=== PATIENT | male | born 1975 | race African-American/Black ===

== ENCOUNTER 2016-12-12 05:52 | Emergency (ER) | payer SELFPAY ==
[2016-12-12 06:11] VITALS: BMI 36.9
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
[2016-12-12] MEDS ORDERED: ACETAMINOPHEN 1000 MG/100 ML VIAL (NON FORMULARY) IVPB ONE (06:45)
[2016-12-12] MEDS ORDERED: SODIUM CHLORIDE 0.9% 500 ML INFUS.BAG IV ONE (06:45)
[2016-12-12 07:31] LABS: BASOPHIL 0.7 % (0-2.0); MCH 35.4 pg (25.7-33.7); MEAN CELL VOLUME 101.1 fl (80-96); MEAN PLT VOLUME 10.1 fl (7.5-11.1); NEUTROPHILS 50.6 % (42.8-82.8); PLATELET COUNT 210 K/MM3 (134-434); RDW 13.8 % (11.9-15.9); WHITE BLOOD COUNT 10.6 K/mm3 (4.0-10.0)
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
[2016-12-12 07:56] LABS: ALBUMIN 3.7 g/dl (3.4-5.0); AMYLASE 82 U/L (25-115); ANION GAP 9 (8-16); BILIRUBIN,TOTAL 0.4 mg/dL (0.2-1.0); CALCIUM 8.8 mg/dL (8.5-10.1); CO2 25 mmol/L (21-32); CREATININE 1.2 mg/dL (0.7-1.3); GLUCOSE,RANDOM 103 mg/dL (74-106); TOT PROT 7.4 g/dl (6.4-8.2)
[2016-12-12 07:57] LABS: ALK PHOS 114 U/L (45-117); SGPT/ALT 65 U/L (12-78)
[2016-12-12 08:08] LABS: SGOT/AST 34 U/L (15-37)
[2016-12-12 10:54] VITALS: BP 136/78; PULSE 68; TEMP 97.8
== END 2016-12-12 11:12 ==
LOC: JER 05:52
CPT/HCPCS: 36415; 74176-TC; 80053; 82150; 83690; 85025; 99282-25; Q9967

== ENCOUNTER 2017-03-07 17:31 | Emergency (ER) | payer OTHER ==
[2017-03-07 17:36] VITALS: BP 130/72; PULSE 80; TEMP 98.2; BMI 41.3
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
[2017-03-07] MEDS ORDERED: SODIUM CHLORIDE 1,000 ML IV STA (18:13)
[2017-03-07] MEDS ORDERED: ONDANSETRON 4 MG/2 ML VIAL IVPUSH STA (18:13)
[2017-03-07] MEDS ORDERED: ONDANSETRON 4 MG/2 ML VIAL ONE (18:17)
[2017-03-07 18:40] LABS: BASOPHIL 0.5 % (0-2.0); EOSINOPHIL 2.4 % (0-4.5); MCHC 34.2 g/dl (32.0-35.9); MEAN CELL VOLUME 99.4 fl (80-96); MEAN PLT VOLUME 10.2 fl (7.5-11.1); NEUTROPHILS 61.8 % (42.8-82.8); PLATELET COUNT 152 K/MM3 (134-434); RDW 13.7 % (11.9-15.9); WHITE BLOOD COUNT 11.3 K/mm3 (4.0-10.0)
[2017-03-07 18:42] LABS: URINE APPEARANCE CLEAR; URINE BILIRUBIN NEGATIVE (NEGATIVE); URINE BLOOD NEGATIVE (NEGATIVE); URINE COLOR YELLOW; URINE GLUCOSE (UA) NEGATIVE (NEGATIVE); URINE KETONE NEGATIVE (NEGATIVE); URINE NITRITE NEGATIVE (NEGATIVE); URINE PROTEIN NEGATIVE (NEGATIVE); URINE UROBILINOGEN NEGATIVE mg/dL (0.2-1.0)
[2017-03-07 19:06] LABS: ALBUMIN 3.9 g/dl (3.4-5.0); ALK PHOS 70 U/L (45-117); ANION GAP 7 (8-16); BILIRUBIN,TOTAL 0.4 mg/dL (0.2-1.0); CALCIUM 8.4 mg/dL (8.5-10.1); CO2 28 mmol/L (21-32); CREATININE 1.2 mg/dL (0.7-1.3); GLUCOSE,RANDOM 113 mg/dL (74-106); SGOT/AST 22 U/L (15-37); SGPT/ALT 50 U/L (12-78); TOT PROT 7.3 g/dl (6.4-8.2)
[2017-03-07] MEDS ORDERED: PANTOPRAZOLE SODIUM 40 MG VIAL IVPUSH ONE (20:01)
[2017-03-07] MEDS ORDERED: PANTOPRAZOLE SODIUM 40 MG VIAL ONE (20:10)
[2017-03-07 22:14] LABS: URINE LEUK ESTERASE Negative (NEGATIVE)
== END 2017-03-07 22:39 | disposition home or self-care (01) ==
LOC: JER 17:31
PROC: 3E033GC Introduction of Other Therapeutic Substance into Peripheral Vein, Percutaneous Approach (ICD-10-PCS; principal; 2017-03-07)
DX: K21.9 Gastro-esophageal reflux disease without esophagitis (principal); K59.00 Constipation, unspecified; I10 Essential (primary) hypertension; Z87.828 Personal history of other (healed) physical injury and trauma
CPT/HCPCS: 36415; 74177-TC; 76705-TC; 80053; 81003; 83690; 85025; 96374; 96375; 99284-25

== ENCOUNTER 2017-12-18 11:06 | Emergency (ER) | payer OTHER ==
[2017-12-18 11:12] VITALS: BP 124/80; PULSE 74; TEMP 98.4; BMI 41.3
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
[2017-12-18 13:00] LABS: BASO % 0.5 % (0-2.0); EOS % 3.5 % (0-4.5); HEMATOCRIT 43.1 % (35.4-49); HEMOGLOBIN 14.8 GM/dL (11.7-16.9); LYMPH % 35.8 % (8-40); MCH 34.3 pg (25.7-33.7); MCHC 34.2 g/dl (32.0-35.9); MEAN CELL VOLUME 100.4 fl (80-96); MEAN PLT VOLUME 9.9 fl (7.5-11.1); NEUT % 51.2 % (42.8-82.8); PLATELET COUNT 163 K/MM3 (134-434); RDW 13.8 % (11.9-15.9); WHITE BLOOD COUNT 8.3 K/mm3 (4.0-10.0)
[2017-12-18 13:07] LABS: URINE APPEARANCE CLEAR; URINE BILIRUBIN NEGATIVE (<2.0 mg/dL); URINE COLOR YELLOW; URINE GLUCOSE (UA) NEGATIVE (NEGATIVE); URINE KETONE NEGATIVE (NEGATIVE); URINE LEUK ESTERASE NEGATIVE (NEGATIVE); URINE NITRITE NEGATIVE (NEGATIVE); URINE PROTEIN NEGATIVE (NEGATIVE); URINE UROBILINOGEN 4.0 E.U/dl mg/dL (0.2-1.0)
[2017-12-18] MEDS ORDERED: morphine CARPU-JECT 4 MG/1 ML DISP.SYRIN IVPUSH ONE (13:08)
[2017-12-18] MEDS ORDERED: MORPHINE SULFATE 2 MG/ML VIAL ONE (13:14)
[2017-12-18] MEDS ORDERED: morphine SULFATE 4 MG/ML VIAL ONE (13:14)
[2017-12-18 13:21] LABS: ALBUMIN 3.8 g/dl (3.4-5.0); ALK PHOS 68 U/L (45-117); ANION GAP 3 MMOL/L (8-16); BILIRUBIN,TOTAL 0.5 mg/dL (0.2-1.0); BLOOD UREA NITROGEN 10 mg/dL (7-18); CALCIUM 8.4 mg/dL (8.5-10.1); CHLORIDE 109 mmol/L (98-107); CO2 29 mmol/L (21-32); CREATININE 1.1 mg/dL (0.7-1.3); GLUCOSE,RANDOM 85 mg/dL (74-106); LIPASE 119 U/L (73-393); POTASSIUM 4.4 mmol/L (3.5-5.1); SGOT/AST 17 U/L (15-37); SGPT/ALT 28 U/L (12-78); SODIUM 141 mmol/L (136-145); TOT PROT 7.1 g/dl (6.4-8.2)
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
[2017-12-18] MEDS ORDERED: ONDANSETRON 4 MG/2 ML VIAL IVPUSH ONE (13:38)
[2017-12-18] MEDS ORDERED: FAMOTIDINE 20 MG/50 ML IVPB 20 MG/50 ML MG IVPB ONE ×2 (13:38→14:12)
[2017-12-18] MEDS ORDERED: SODIUM CHLORIDE 0.9% 1000 ML INFUS.BAG IV ONE (13:38)
[2017-12-18] MEDS ORDERED: ONDANSETRON 4 MG/2 ML VIAL ONE (14:12)
[2017-12-18] MEDS ORDERED: MAG HYDROX/AL HYDROX/SIMETH 30 ML UNIT-DOSE CUP PO ONE (16:26)
[2017-12-18] MEDS ORDERED: MAG HYDROX/AL HYDROX/SIMETH 30 ML UNIT-DOSE CUP ONE (16:33)
== END 2017-12-18 16:41 | disposition home or self-care (01) ==
LOC: JER 11:06
PROC: 3E033GC Introduction of Other Therapeutic Substance into Peripheral Vein, Percutaneous Approach (ICD-10-PCS; principal; 2017-12-18)
PROC: 3E033GC Introduction of Other Therapeutic Substance into Peripheral Vein, Percutaneous Approach (ICD-10-PCS; 2017-12-18)
PROC: 3E033NZ Introduction of Analgesics, Hypnotics, Sedatives into Peripheral Vein, Percutaneous Approach (ICD-10-PCS; 2017-12-18)
DX: K29.00 Acute gastritis without bleeding (principal); I10 Essential (primary) hypertension; K21.9 Gastro-esophageal reflux disease without esophagitis; Z87.442 Personal history of urinary calculi
CPT/HCPCS: 36415; 74177-TC; 80053; 81003; 83690; 85025; 96365; 96375; 99282-25; J7030

== ENCOUNTER 2018-07-23 08:59 | Emergency (ER) | payer OTHER ==
[2018-07-23 09:07] VITALS: BP 142/84; PULSE 71; TEMP 97.7; BMI 41.3
[2018-07-23] MEDS ORDERED: ACETAMINOPHEN 1000 MG/100 ML VIAL (NON FORMULARY) IVPB ONE (09:08)
[2018-07-23] MEDS ORDERED: SODIUM CHLORIDE 1,000 ML IV STA (09:08)
[2018-07-23] MEDS ORDERED: ACETAMINOPHEN INJECTION 100 ML IVPB ONE (09:43)
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
[2018-07-23 10:02] LABS: PH,URINE 5.5 (5.0-8.0); URINE APPEARANCE CLEAR; URINE BILIRUBIN NEGATIVE (NEGATIVE); URINE COLOR YELLOW; URINE GLUCOSE (UA) NEGATIVE (NEGATIVE); URINE KETONE NEGATIVE (NEGATIVE); URINE LEUK ESTERASE NEGATIVE (NEGATIVE); URINE NITRITE NEGATIVE (NEGATIVE); URINE PROTEIN NEGATIVE (NEGATIVE)
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
[2018-07-23 10:18] LABS: ALBUMIN 3.7 g/dl (3.4-5.0); ALK PHOS 71 U/L (45-117); ANION GAP 5 MMOL/L (8-16); BILIRUBIN,TOTAL 0.4 mg/dL (0.2-1); BLOOD UREA NITROGEN 11 mg/dL (7-18); CALCIUM 8.8 mg/dL (8.5-10.1); CHLORIDE 107 mmol/L (98-107); CO2 26 mmol/L (21-32); GLUCOSE,RANDOM 90 mg/dL (74-106); LIPASE 272 U/L (73-393); POTASSIUM 4.6 mmol/L (3.5-5.1); SGOT/AST 25 U/L (15-37); SGPT/ALT 31 U/L (13-61); SODIUM 138 mmol/L (136-145); TOT PROT 7.2 g/dl (6.4-8.2)
[2018-07-23 11:21] LABS: BASO % 0.6 % (0-2.0); EOS % 4.4 % (0-4.5); HEMATOCRIT 43.5 % (35.4-49); HEMOGLOBIN 14.8 GM/dL (11.7-16.9); LYMPH % 43.9 % (8-40); MCH 34.6 pg (25.7-33.7); MEAN CELL VOLUME 101.9 fl (80-96); MEAN PLT VOLUME 10.6 fl (7.5-11.1); MONO % 8.9 % (3.8-10.2); NEUT % 42.2 % (42.8-82.8); PLATELET COUNT 174 K/MM3 (134-434); RBC 4.27 M/mm3 (4.00-5.60); RDW 13.8 % (11.9-15.9); WHITE BLOOD COUNT 7.3 K/mm3 (4.0-10.0)
== END 2018-07-23 12:15 | disposition home or self-care (01) ==
LOC: JER 08:59
PROC: 3E033NZ Introduction of Analgesics, Hypnotics, Sedatives into Peripheral Vein, Percutaneous Approach (ICD-10-PCS; principal; 2018-07-23)
DX: R10.31 Right lower quadrant pain (principal); Z87.442 Personal history of urinary calculi; K21.9 Gastro-esophageal reflux disease without esophagitis
CPT/HCPCS: 36415; 74177-TC; 80053; 81003; 83605; 83690; 85025; 87086; 87491; 87591; 96374; 99283-25; J0131; J7030

== ENCOUNTER 2018-08-06 09:09 | Inpatient (IN) | payer OTHER ==
[2018-08-06] MEDS ORDERED: SODIUM CHLORIDE 1,000 ML IV STA (09:46)
[2018-08-06] MEDS ORDERED: ONDANSETRON 4 MG/2 ML VIAL IVPB ONE (09:49)
[2018-08-06] MEDS ORDERED: morphine CARPU-JECT 4 MG/1 ML DISP.SYRIN IVPUSH ONE ×4 (09:58→14:19)
[2018-08-06] MEDS ORDERED: ONDANSETRON 4 MG/2 ML VIAL ONE (10:00)
[2018-08-06] MEDS ORDERED: morphine SULFATE 4 MG/ML VIAL ONE ×4 (10:00→14:26)
[2018-08-06 10:15] LABS: BASO % 0.4 % (0-2.0); EOS % 3.6 % (0-4.5); HEMATOCRIT 44.6 % (35.4-49); LYMPH % 40.4 % (8-40); MCH 34.2 pg (25.7-33.7); MCHC 33.7 g/dl (32.0-35.9); MEAN CELL VOLUME 101.4 fl (80-96); MEAN PLT VOLUME 10.5 fl (7.5-11.1); MONO % 9.2 % (3.8-10.2); NEUT % 46.4 % (42.8-82.8); PLATELET COUNT 166 K/MM3 (134-434); RDW 14.1 % (11.9-15.9); WHITE BLOOD COUNT 8.2 K/mm3 (4.0-10.0)
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
[2018-08-06 10:39] LABS: ALBUMIN 3.8 g/dl (3.4-5.0); ALK PHOS 74 U/L (45-117); ANION GAP 4 MMOL/L (8-16); BILIRUBIN,TOTAL 0.4 mg/dL (0.2-1); BLOOD UREA NITROGEN 9 mg/dL (7-18); CHLORIDE 105 mmol/L (98-107); CO2 29 mmol/L (21-32); CREATININE 1.1 mg/dL (0.55-1.3); GLUCOSE,RANDOM 94 mg/dL (74-106); LIPASE 254 U/L (73-393); MAGNESIUM 1.9 mg/dL (1.8-2.4); PHOSPHOROUS 3.2 mg/dL (2.5-4.9); POTASSIUM 4.6 mmol/L (3.5-5.1); SGOT/AST 20 U/L (15-37); SGPT/ALT 35 U/L (13-61); SODIUM 138 mmol/L (136-145); TOT PROT 7.6 g/dl (6.4-8.2)
[2018-08-06 10:42] LABS: EPI CELLS 0.9 /HPF (0-5/HPF); URINE APPEARANCE CLEAR; URINE BACTERIA 0.8 /hpf (NEGATIVE); URINE BILIRUBIN NEGATIVE (NEGATIVE); URINE CASTS 6 /hpf (0-8); URINE COLOR YELLOW; URINE GLUCOSE (UA) NEGATIVE (NEGATIVE); URINE KETONE TRACE (NEGATIVE); URINE LEUK ESTERASE TRACE (NEGATIVE); URINE NITRITE NEGATIVE (NEGATIVE); URINE PROTEIN TRACE (NEGATIVE); URINE RBC 2 /hpf (0-4); URINE WBC 4 /hpf (0-5)
[2018-08-06 11:24] LABS: ERYTHROCYTE SEDIMENTATION RATE 6 mm/hr (0-10)
[2018-08-06 17:19] VITALS: BMI 40.4
--- NOTE | 2018-08-06 18:37 | CONSULT ---
Consult Consult Specialty:: General Surgery Reason for Consultation:: abdominal pain - History of Present Illness Chief Complaint: abdominal pain History of Present Illness: 43 year old male, with a significant past medical history of GERD, who presents to the emergency department with, several weeks of worsening RLQ pain initially intermittent now constant with associated abdominal distention. As per patient, he was recently evaluated in the ED 07/23 at which time he had a CT abdomen and pelvis which depicted potential terminal ileitis and potential irritable bowel disease and was given antibiotics for a UTI by his PCP after his ER discharge. - History Source History Provided By: Patient, Medical Record Limitations to Obtaining History: No Limitations - Alcohol/Substance Use Hx Alcohol Use: No - Smoking History Smoking history: Never smoked Have you smoked in the past 12 months: No Home Medications - Allergies Allergies/Adverse Reactions: Allergies Allergy/AdvReac Type Severity Reaction Status Date / Time No Known Allergies Allergy Verified 07/23/18 09:04 - Home Medications Home Medications: Ambulatory Orders NK [No Known Home Medication] 07/23/18 Review of Systems - Review of Systems Constitutional: denies: Chills, Fever Eyes: denies: Blind Spots, Recent Change in Vision HENT: denies: Difficult Swallowing, Throat Pain Cardiovascular: denies: Chest Pain, Palpitations Respiratory: denies: Cough, SOB Gastrointestinal: reports: Abdominal Pain, Bloating, Indigestion Genitourinary: denies: Discharge, Dysuria, Flank Pain Breasts: reports: No Symptoms Reported. denies: Pain Musculoskeletal: denies: Joint Swelling, Muscle Pain Integumentary: denies: Lesions, Lump, Pallor Neurological: denies: Seizure, Syncope Endocrine: denies: Unexplained Weight Gain, Unexplained Weight Loss Hematology/Lymphatic: denies: Easily Bruised, Excessive Bleeding Psychiatric: denies: Anxiety, Depression Physical Exam Vital Signs: Vital Signs Temperature 97.7 F 08/06/18 17:16 Pulse Rate 59 L 08/06/18 17:16 Respiratory Rate 20 08/06/18 17:19 Blood Pressure 119/67 08/06/18 17:16 O2 Sat by Pulse Oximetry (%) 98 08/06/18 17:19 Constitutional: Yes: No Distress, Calm, Obese Eyes: Yes: Conjunctiva Clear, EOM Intact Neck: Yes: Supple, Trachea Midline Cardiovascular: Yes: Regular Rate and Rhythm, S1, S2 Respiratory: Yes: Regular, CTA Bilaterally Gastrointestinal: Yes: Normal Bowel Sounds, Soft, Abdomen, Obese, Tenderness ( RLQ). No: Distention ...Rectal Exam: Yes: Sphincter Tone Normal. No: Induration, Inflammation Renal/: No: CVA Tenderness - Left, CVA Tenderness - Right Breast(s): No: Breast Implants, Skin Changes Musculoskeletal: No: Joint Stiffness, Muscle Pain Extremities: No: Cool, Cyanosis Edema: No Peripheral Pulses WNL: Yes Neurological: Yes: Alert, Oriented Psychiatric: Yes: Alert, Oriented Labs: CBC, BMP 08/06/18 09:50 08/06/18 09:50 Imaging - Results Cat Scan: Report Reviewed, Image Reviewed (terminal ileitis) Problem List - Problems (1) RLQ abdominal tenderness Assessment/Plan: 43yo male with months of reflux symptoms and RLQ abdominal pain. IBD versus colitis enteritis. No acute surgical intervention is indicated Clear liquid diet consider empicirc IV anticbitics GI for upper and lower endoscopy Thank you for the opportunity to participate in the care of this patient. Code(s): R10.813 - RIGHT LOWER QUADRANT ABDOMINAL TENDERNESS Qualifiers: Presence of rebound: present Qualified Code(s): R10.823 - Right lower quadrant rebound abdominal tenderness (2) Abdominal pain Code(s): R10.9 - UNSPECIFIED ABDOMINAL PAIN Qualifiers: Abdominal location: right lower quadrant Qualified Code(s): R10.31 - Right lower quadrant pain (3) Constipation Code(s): K59.00 - CONSTIPATION, UNSPECIFIED Qualifiers: Constipation type: unspecified constipation type Qualified Code(s): K59.00 - Constipation, unspecified (4) GERD (gastroesophageal reflux disease) Code(s): K21.9 - GASTRO-ESOPHAGEAL REFLUX DISEASE WITHOUT ESOPHAGITIS Qualifiers: Esophagitis presence: without esophagitis Qualified Code(s): K21.9 - Gastro -esophageal reflux disease without esophagitis (5) Gastritis Code(s): K29.70 - GASTRITIS, UNSPECIFIED, WITHOUT BLEEDING
[2018-08-06] MEDS ORDERED: MORPHINE SULFATE 2 MG/ML VIAL IVPUSH PRN (19:39)
[2018-08-06] MEDS: PANTOPRAZOLE 40 MG TABLET (FP) PO SCH (22:05)
[2018-08-06] MEDS: DEXTROSE 5%-0.45% SALINE 1,000 ML IV SCH (22:05)
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
[2018-08-07 08:32] LABS: BASO % 0.5 % (0-2.0); EOS % 3.4 % (0-4.5); HEMATOCRIT 41.6 % (35.4-49); HEMOGLOBIN 14.1 GM/dL (11.7-16.9); LYMPH % 34.3 % (8-40); MCH 34.7 pg (25.7-33.7); MCHC 33.9 g/dl (32.0-35.9); MEAN CELL VOLUME 102.3 fl (80-96); MEAN PLT VOLUME 10.2 fl (7.5-11.1); MONO % 9.6 % (3.8-10.2); NEUT % 52.2 % (42.8-82.8); PLATELET COUNT 147 K/MM3 (134-434); RBC 4.07 M/mm3 (4.00-5.60); WHITE BLOOD COUNT 8.1 K/mm3 (4.0-10.0)
[2018-08-07] MEDS: PANTOPRAZOLE 40 MG TABLET (FP) PO SCH (09:56)
[2018-08-07] MEDS: DEXTROSE 5%-0.45% SALINE 1,000 ML IV SCH (09:58)
[2018-08-07] MEDS ORDERED: ENOXAPARIN NA (PORCINE) 40 MG/0.4 ML DISP.SYRIN SQ SCH (10:00)
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
[2018-08-07] MEDS ORDERED: PEG 3350/NA SULF BICARB CL/KCL 4000 ML SOLN.RECON PO ONE (10:30)
--- NOTE | 2018-08-07 12:26 | PN ---
Progress Note, Physician Chief Complaint: Feels better - Current Medication List Current Medications: Active Medications Enoxaparin Sodium (Lovenox -) 40 mg SQ DAILY [facility] Stop: 08/08/18 06:00 Last Admin: 08/07/18 09:56 Dose: 40 mg Dextrose/Sodium Chloride (D5-1/2ns -) 1,000 mls @ 75 mls/hr IV ASDIR JEANNE Last Admin: 08/07/18 09:58 Dose: 75 mls/hr Morphine Sulfate (Morphine Sulfate) 2 mg IVPUSH Q4H PRN PRN Reason: PAIN LEVEL 4 - 6 Last Admin: 08/06/18 20:04 Dose: 2 mg Pantoprazole Sodium (Protonix -) 40 mg PO DAILY [facility] Last Admin: 08/07/18 09:56 Dose: 40 mg - Objective Vital Signs: Vital Signs Temperature 98.1 F 08/07/18 07:21 Pulse Rate 60 08/07/18 07:21 Respiratory Rate 20 08/07/18 07:21 Blood Pressure 124/60 08/07/18 07:21 O2 Sat by Pulse Oximetry (%) 98 08/06/18 21:00 Constitutional: Yes: No Distress Neck: Yes: Supple Cardiovascular: Yes: Regular Rate and Rhythm, S1, S2 Respiratory: Yes: CTA Bilaterally Gastrointestinal: Yes: Normal Bowel Sounds, Soft Neurological: Yes: Alert, Oriented. No: Loss of Sensation Labs: CBC, BMP 08/07/18 07:00 08/06/18 09:50 Problem List - Problems (1) Abdominal pain Assessment/Plan: Colonoscopy planned for AM. Crohn's considered as a possibility but B12 is normal. Urine porphobilinogen ordered. Code(s): R10.9 - UNSPECIFIED ABDOMINAL PAIN Qualifiers: Abdominal location: right lower quadrant Qualified Code(s): R10.31 - Right lower quadrant pain
[2018-08-07] MEDS ORDERED: ACETAMINOPHEN 325 MG TABLET (FP) PO PRN (12:48)
[2018-08-07 18:18] VITALS: TEMP 98.1
[2018-08-08 07:05] LABS: BASO % 0.5 % (0-2.0); EOS % 3.7 % (0-4.5); HEMATOCRIT 41.8 % (35.4-49); HEMOGLOBIN 14.2 GM/dL (11.7-16.9); LYMPH % 37.6 % (8-40); MCH 34.5 pg (25.7-33.7); MEAN CELL VOLUME 101.2 fl (80-96); MONO % 10.2 % (3.8-10.2); PLATELET COUNT 149 K/MM3 (134-434); RBC 4.13 M/mm3 (4.00-5.60); RDW 13.6 % (11.9-15.9); WHITE BLOOD COUNT 7.3 K/mm3 (4.0-10.0)
[2018-08-08] MEDS: PANTOPRAZOLE 40 MG TABLET (FP) PO SCH (09:35)
--- NOTE | 2018-08-08 12:09 | PN ---
Progress Note, Physician Chief Complaint: Rt LQ pain - Current Medication List Current Medications: Active Medications Acetaminophen (Tylenol -) 650 mg PO Q4H PRN PRN Reason: Pain 1-3 Dextrose/Sodium Chloride (D5-1/2ns -) 1,000 mls @ 75 mls/hr IV ASDIR [facility] Last Admin: 08/07/18 09:58 Dose: 75 mls/hr Morphine Sulfate (Morphine Sulfate) 2 mg IVPUSH Q4H PRN PRN Reason: PAIN LEVEL 4 - 6 Last Admin: 08/06/18 20:04 Dose: 2 mg Pantoprazole Sodium (Protonix -) 40 mg PO DAILY [facility] Last Admin: 08/08/18 09:35 Dose: 40 mg - Objective Vital Signs: Vital Signs Temperature 98.1 F 08/08/18 06:00 Pulse Rate 62 08/08/18 06:00 Respiratory Rate 20 08/08/18 06:00 Blood Pressure 123/74 08/08/18 06:00 O2 Sat by Pulse Oximetry (%) 98 08/07/18 21:00 Young man not in distress HEENT: Mm moist, no anemia, PERRLA EOMI NECK: no JVd No bruit CHEST: CTA B/L CVS: s1S2 r ABD: No distention Rt LQ Tenderness RIDING DOUBLE: AOX3 non focal Labs: CBC, BMP 08/08/18 06:00 08/06/18 09:50 Problem List - Problems (1) Abdominal pain Assessment/Plan: Evaluted by GI and surgery schedule for colonoscopy for possible ileitis pain control Code(s): R10.9 - UNSPECIFIED ABDOMINAL PAIN Qualifiers: Abdominal location: right lower quadrant Qualified Code(s): R10.31 - Right lower quadrant pain (2) GERD (gastroesophageal reflux disease) Assessment/Plan: on PPI Code(s): K21.9 - GASTRO-ESOPHAGEAL REFLUX DISEASE WITHOUT ESOPHAGITIS Qualifiers: Esophagitis presence: without esophagitis Qualified Code(s): K21.9 - Gastro -esophageal reflux disease without esophagitis
--- NOTE | 2018-08-08 15:32 | PN ---
Progress Note (short form) - Note Progress Note: Brief colonoscopy report -- see full report in paper chart for details Large internal hemorrhoids Normal colon, biopsies taken for microscopic colitis Normal terminal ileum, biopsied Recommend Await pathology Advance diet Repeat colonoscopy at age 44 for screening
[2018-08-08 16:16] VITALS: BP 124/84; PULSE 71
--- NOTE | 2018-08-08 17:11 | DS ---
Physical Examination Vital Signs: Vital Signs Temperature 98.1 F 08/08/18 15:30 Pulse Rate 71 08/08/18 16:15 Respiratory Rate 20 08/08/18 16:15 Blood Pressure 124/84 08/08/18 16:15 O2 Sat by Pulse Oximetry (%) 97 08/08/18 16:15 Young man not in distress HEENT: Mm moist, no anemia, PERRLA EOMI NECK: no JVd No bruit CHEST: CTA B/L CVS: s1S2 r ABD: No distention Rt LQ Tenderness DENTAL LABORATORY TECHNICIAN: AOX3 non focal Labs: CBC, BMP 08/08/18 06:00 08/06/18 09:50 Discharge Summary Reason For Visit: GASTROESOPHAGEAL REFLUX DISEASE,ABD PAIN Current Active Problems Abdominal pain (Acute) RLQ abdominal tenderness (Acute) Hospital Course: 43 yrs old man admitted with RT UQ pain Ct abd shows Collitis underwent CT abd . Colonoscopy that shows no colitis except internal non bleeding hemorrhoids. Condition: Stable - Instructions Diet, Activity, Other Instructions: High Fiber Diet Referrals: Hina Carmona MD [Staff Physician] - 2 Weeks Disposition: HOME - Home Medications Comprehensive Discharge Medication List: Ambulatory Orders Pantoprazole Sodium [Protonix -] 40 mg PO DAILY 30 Days tablet.ec 08/08/18
--- NOTE | 2018-08-10 17:56 | PATH ---
Surgical Pathology Report Patient Name: SYDNI EARLY Med. Rec. #: [id number] /Age/Gender: 1975 (Age: 43) / M Account: [id number] Location: [facility] MED/SURG Taken: 08/08/2018 Received: 08/09/2018 Reported: 08/10/2018 Physicians: MD Tonie Grayson M.D. Specimen(s) Received A: TERMINAL ILEUM B: RIGHT COLON C: LEFT COLON Clinical History Abdominal pain, abnormal CT scan Postoperative diagnosis: Hemorrhoids, normal colon Final Diagnosis A. TERMINAL ILEUM, BIOPSY: ILEAL MUCOSA WITHOUT SIGNIFICANT PATHOLOGIC FINDINGS. B. COLON, RIGHT, BIOPSY: COLONIC MUCOSA WITH PROMINENT LYMPHOID AGGREGATE. C. COLON, LEFT, BIOPSY: COLONIC MUCOSA WITH SMALL LYMPHOID AGGREGATE. Electronically Signed Renetta Valentin M.D. Gross Description A. Received in formalin, labeled "terminal ileum biopsy" are 2 montanez, irregular portions of soft tissue averaging 0.3 cm. in greatest dimension. The specimens are submitted in toto in one cassette. B. Received in formalin, labeled "right colon biopsy" are 5 montanez, irregular portions of soft tissue averaging 0.3 cm. in greatest dimension. The specimens are submitted in toto in one cassette. C. Received in formalin, labeled "left colon biopsy" are 3 montanez, irregular portions of soft tissue ranging from 0.3-0.7 cm. in greatest dimension. The specimens are submitted in toto in one cassette. DL/08/09/2018 saudi08/09/2018
== END 2018-08-08 17:42 | disposition home or self-care (01) | DRG 241 ==
LOC: JER 09:09 → JERBED 15:41 → J8W 16:48 → OBSVTOIN 19:36
PROVIDERS: ADMIT Internal Medicine; ATTEND Internal Medicine
PROC: 0DBB8ZX Excision of Ileum, Via Natural or Artificial Opening Endoscopic, Diagnostic (ICD-10-PCS; principal; 2018-08-08 11:00)
DX: K29.70 Gastritis, unspecified, without bleeding (principal); K21.9 Gastro-esophageal reflux disease without esophagitis; R10.31 Right lower quadrant pain; K59.00 Constipation, unspecified; K64.8 Other hemorrhoids; E66.9 Obesity, unspecified; Z68.41 Body mass index [BMI] 40.0-44.9, adult
CPT/HCPCS: 36415; 74019-TC-FY; 74177-TC; 80053; 81003; 82607; 83690; 83735; 84100; 84110; 85025; 85027; 85651; 86140; 87086; 88305-TC; 99284-25; G0378; J7030

== ENCOUNTER 2019-11-02 05:55 | Emergency (ER) | payer OTHER ==
[2019-11-02 06:08] VITALS: TEMP 98; BMI 41.3
[2019-11-02 07:03] LABS: BASO % 1.4 % (0-2.0); EOS % 3.3 % (0-4.5); HEMATOCRIT 43.5 % (35.4-49); HEMOGLOBIN 14.7 GM/dL (11.7-16.9); LYMPH % 28.3 % (8-40); MCH 34.3 pg (25.7-33.7); MCHC 33.7 g/dl (32.0-35.9); MEAN CELL VOLUME 101.7 fl (80-96); MEAN PLT VOLUME 10.9 fl (7.5-11.1); MONO % 9.6 % (3.8-10.2); NEUT % 57.4 % (42.8-82.8); PLATELET COUNT 167 K/MM3 (134-434); RBC 4.28 M/mm3 (4.00-5.60); RDW 13.8 % (11.9-15.9); WHITE BLOOD COUNT 9.7 K/mm3 (4.0-10.0)
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
[2019-11-02 07:12] LABS: INR 0.98 (0.83-1.09); PROTHROMBIN TIME (PATIENT) 11.6 SEC (9.7-13.0)
--- NOTE | 2019-11-02 07:19 | PDOC ---
Attending Attestation - Resident Resident Name: Dominique Bermudez - ED Attending Attestation I have performed the following: I have examined & evaluated the patient, The case was reviewed & discussed with the resident, I agree w/resident's findings & plan - HPI HPI: 11/02/19 07:47 44yo male with no significant PMH presents with b/l LE swelling. Swelling started 6 days ago and begin in the feet and ascended up to the knee. He also reports SOB with some exertion, difficulty breathing when laying down, and light headedness. He also reports a 6 day hx of rash in both legs and both arms that is itchy and painful; admits to eating crab legs. He denies fevers, chills, chest pain, naussea, vomiting, diarrhea, blurry vision. b/l swelling, RLE pitting and calf tightness > LLE 11/02/19 14:35 - Physicial Exam PE: 11/02/19 07:29 Agree with the resident's HPI and PE as documented in the electronic medical record. NAD, well appearing, EOMI, PERRL, nl conjunctiva, anicteric; neck supple. lungs clear, RRR, abdomen soft nontender. no rebound, guarding. Back nontender. MIKE x4, no focal neuro deficits. 1+ pitting b/l peripheral edema, no calf tenderness or LE tenderness.. normal color for ethnicity, WWP. left forearm with small maculopapular rash, blanching, nontender, +bumpy and pruritic. 11/02/19 08:54 11/02/19 09:20 - Medical Decision Making 11/02/19 07:19 Vital Signs Temp Pulse Resp BP Pulse Ox 98.0 F 82 18 141/88 97 11/02/19 06:03 11/02/19 06:03 11/02/19 06:03 11/02/19 06:03 11/02/19 06:03 vitals reviewed, wnl here no respiratory distress normal sats no fever, nontoxic ddx. DVT, CHF, pulm edema, ACS, arrhythmia, anemia, electrolyte/metabolic derangements. 11/02/19 08:54 Laboratory results are within normal limit negative troponin, negative BNP so unlikely to be cardiomyopathy or CHF Duplex to evaluate for DVT given his leg swelling and lower extremity pain worse in the left side There could be a component of hypoventilatory syndrome or undiagnosed sleep apnea given AM sx. and body habitus contributing to his shortness of breath. Currently in no respiratory distress, no chest pain or acute shortness of breath. duplex neg for DVT Pt to be discharged in stable condition. Patient made aware of clinical impression, treatment recommendations and disposition plan, return precautions discussed (including but not limited to new or persistent/worsening symptoms, pain, fevers, or signs of infection, chest pain, respiratory distress, inability to tolerate oral intake, dehydration, syncope, or neurologic changes). Follow up with PMD and/or specialist as recommended, follow up information provided, take medications as instructed for duration of time. continue with supportive care, avoid triggers and precipitants. All questions answered to patient's satisfaction and expressed understanding and comfort with this. At the time of discharge, the patient is alert, clinically improved, tolerating po and verbalizes understanding of instructions, satisfied with the care received and felt comfortable with the plan. Patient does not suffer from an acute life- threatening medical condition at this time and is safe for outpatient follow- up. 11/02/19 14:36 Heart Score/ECG Review #1 ECG reviewed & interpreted by me at: 07:30 General ECG Interpretation: Sinus Rhythm, Normal Rate, Normal Intervals 11/02/19 07:29 EKG normal sinus rhythm 69 bpm, no interval abnormalities, narrow QRS, ST and T wave segments and morphology normal. Discharge - Discharge Information Problems reviewed: Yes Clinical Impression/Diagnosis: Urticaria, Peripheral edema Condition: Stable Disposition: HOME - Admission No - Follow up/Referral Referrals: Esa Ferrara MD [Staff Physician] - Ambrose Melgar MD [Primary Care Provider] - Drew Mendoza MD [Staff Physician] - Christopher Locke MD, MD [Staff Physician] - - Patient Discharge Instructions Patient Printed Discharge Instructions: DI for Hives, DI for Peripheral Edema -- Bilateral Additional Instructions: Follow up with PCP and the referred fur operator for further monitoring and workup of you shortness of breath. Continue over the counter benadryl for treatment of rash. Return to ED if symptoms worsen. - Post Discharge Activity
[2019-11-02 07:38] LABS: ALBUMIN 3.6 g/dl (3.4-5.0); ALK PHOS 85 U/L (45-117); ANION GAP 6 MMOL/L (8-16); BILIRUBIN,TOTAL 0.4 mg/dL (0.2-1); BLOOD UREA NITROGEN 12.3 mg/dL (7-18); CALCIUM 8.5 mg/dL (8.5-10.1); CHLORIDE 108 mmol/L (98-107); CO2 25 mmol/L (21-32); CREATININE 1.2 mg/dL (0.55-1.3); GLUCOSE,RANDOM 97 mg/dL (74-106); N-TERMINAL BNP 18.1 pg/ml (5-125); POTASSIUM 4.1 mmol/L (3.5-5.1); SGOT/AST 26 U/L (15-37); SGPT/ALT 35 U/L (13-61); SODIUM 139 mmol/L (136-145)
--- NOTE | 2019-11-02 11:50 | EKG ---
Test Reason : Blood Pressure : / mmHG Vent. Rate : 069 BPM Atrial Rate : 069 BPM P-R Int : 194 ms QRS Dur : 092 ms QT Int : 376 ms P-R-T Axes : 053 079 044 degrees QTc Int : 402 ms NORMAL SINUS RHYTHM NORMAL ECG NO PREVIOUS ECGS AVAILABLE Confirmed by RENATO FONTAINE MD ([id number]) on 11/02/2019 11:50:28 AM Referred By: Confirmed By:RENATO FONTAINE MD
[2019-11-02 13:12] VITALS: BP 131/77; PULSE 68
== END 2019-11-02 13:12 | disposition home or self-care (01) ==
LOC: JER 05:55
PROC: 3E033GC Introduction of Other Therapeutic Substance into Peripheral Vein, Percutaneous Approach (ICD-10-PCS; principal; 2019-11-02)
DX: R60.0 Localized edema (principal); L50.9 Urticaria, unspecified
CPT/HCPCS: 36415; 71046-TC-FY; 80053; 83880; 84484; 85025; 85610; 85730; 93005; 93010; 93970-TC; 99285-25

== ENCOUNTER 2022-04-16 09:26 | Emergency (ER) | payer OTHER ==
[2022-04-16 09:35] VITALS: BP 158/88; PULSE 70; RESP 18; TEMP 97.6; BMI 42.6
== END 2022-04-16 10:30 | disposition home or self-care (01) ==
LOC: JERFT 09:26 → JER 09:26 → JERFT 10:30
DX: H00.011 Hordeolum externum right upper eyelid (principal)
CPT/HCPCS: 99283-25

== ENCOUNTER 2022-05-13 00:59 | Emergency (ER) | payer OTHER ==
[2022-05-13 01:05] VITALS: BP 138/84; PULSE 73; RESP 19; TEMP 98; BMI 40.1
[2022-05-13] MEDS ORDERED: DEXAMETHASONE SOD PHOSPHATE 10 MG/1 ML VIAL IM ONE (02:21)
[2022-05-13] MEDS ORDERED: ALBUTEROL SO4 2.5/IPRATROPIUM 0.5 INH SOL 3 ML VIAL.NEB. NEB ONE (02:25)
[2022-05-13] MEDS ORDERED: DEXAMETHASONE SOD PHOSPHATE 10 MG/1 ML VIAL ONE (02:25)
[2022-05-13] MEDS: ALBUTEROL SO4 2.5/IPRATROPIUM 0.5 INH SOL 3 ML VIAL.NEB. NEB SCH ×3 (02:30→03:00)
[2022-05-13] MEDS ORDERED: ALBUTEROL SO4 HFA INHALER IH ONE ×2 (03:32→03:33)
== END 2022-05-13 04:03 | disposition home or self-care (01) ==
LOC: JER 00:59
PROC: 3E023GC Introduction of Other Therapeutic Substance into Muscle, Percutaneous Approach (ICD-10-PCS; principal; 2022-05-13)
PROC: 3E0F7GC Introduction of Other Therapeutic Substance into Respiratory Tract, Via Natural or Artificial Opening (ICD-10-PCS; 2022-05-13)
DX: J20.9 Acute bronchitis, unspecified (principal)
CPT/HCPCS: 0241U-QW; 71046-TC-FY; 87070; 87186; 87205; 87651; 99285-25; J1100

== ENCOUNTER 2022-07-19 20:42 | Emergency (ER) | payer OTHER ==
[2022-07-19 20:46] VITALS: BP 115/77; PULSE 76; RESP 18; TEMP 98.1; BMI 42.0
[2022-07-19] MEDS ORDERED: FLUORESCEIN NA 1 EA STRIP ONE (21:26)
[2022-07-19] MEDS ORDERED: TETRACAINE 0.5% OPHTH SOLN 2 ML BOTTLE ONE (21:26)
[2022-07-19 22:21] LABS: BASO % 0.9 % (0-2.0); EOS % 3.2 % (0-4.5); HEMATOCRIT 43.3 % (35.4-49); HEMOGLOBIN 14.5 GM/dL (11.7-16.9); LYMPH % 35.7 % (8-40); MCH 33.6 pg (25.7-33.7); MCHC 33.5 g/dl (32.0-35.9); MEAN CELL VOLUME 100.4 fl (80-96); MEAN PLT VOLUME 9.3 fl (7.5-11.1); MONO % 10.2 % (3.8-10.2); PLATELET COUNT 184 10^3/uL (134-434); RBC 4.31 M/mm3 (4.00-5.60); RDW 14.7 % (11.9-15.9); WHITE BLOOD COUNT 10.3 K/mm3 (4.0-10.0)
[2022-07-19 22:54] LABS: CALCIUM 8.9 mg/dL (8.5-10.1)
[2022-07-19 22:55] LABS: ALBUMIN 3.8 g/dl (3.4-5.0); BLOOD UREA NITROGEN 12.6 mg/dL (7-18)
[2022-07-19 22:59] LABS: CREATININE 1.2 mg/dL (0.55-1.3)
[2022-07-19 23:00] LABS: BILIRUBIN,TOTAL 0.4 mg/dL (0.2-1); TOT PROT 7.4 g/dl (6.4-8.2)
[2022-07-20] MEDS ORDERED: AMOX TR/POT CLAV 875MG/125MG TABLETS (FP) PO ONE (00:44)
[2022-07-20] MEDS ORDERED: SULFAMETHOXAZOLE/TRIMETHOPRIM 800MG/160MG D.S. TABLET PO ONE (00:44)
[2022-07-20] MEDS ORDERED: ERYTHROMYCIN 0.5% OPHTHALMIC OINTMENT 3.5 GM TUBE OU STA (00:44)
[2022-07-20] MEDS ORDERED: ACETAMINOPHEN 325 MG TABLET (FP) PO ONE (00:52)
[2022-07-20] MEDS ORDERED: AMOX TR/POT CLAV 875MG/125MG TABLETS (FP) ONE (00:57)
[2022-07-20] MEDS ORDERED: ERYTHROMYCIN 0.5% OPHTHALMIC OINTMENT 3.5 GM TUBE ONE (00:58)
[2022-07-20] MEDS ORDERED: ACETAMINOPHEN 325 MG TABLET (FP) ONE (00:58)
[2022-07-20] MEDS ORDERED: SULFAMETHOXAZOLE/TRIMETHOPRIM 800MG/160MG D.S. TABLET ONE (00:58)
== END 2022-07-20 01:02 | disposition home or self-care (01) ==
LOC: JERFT 20:42 → JER 20:42
DX: H02.846 Edema of left eye, unspecified eyelid (principal); H00.014 Hordeolum externum left upper eyelid
CPT/HCPCS: 36415; 70481-TC; 80053; 85025; 99285-25; Q9967

== ENCOUNTER 2023-12-21 14:26 | Emergency (ER) | payer OTHER ==
[2023-12-21 14:40] VITALS: BP 115/75; PULSE 70; RESP 18; TEMP 98.8; BMI 41.0
[2023-12-21 15:26] LABS: BASO % 0.5 % (0-2.0); EOS % 3.2 % (0-4.5); HEMATOCRIT 47.6 % (35.4-49); LYMPH % 38.8 % (8-40); MCH 34.2 pg (25.7-33.7); MCHC 33.6 g/dl (32.0-35.9); MEAN CELL VOLUME 101.7 fl (80-96); MEAN PLT VOLUME 9.8 fl (7.5-11.1); MONO % 9.5 % (3.8-10.2); PLATELET COUNT 173 10^3/uL (134-434); RBC 4.68 M/mm3 (4.00-5.60); WHITE BLOOD COUNT 9.8 K/mm3 (4.0-10.0)
[2023-12-21 15:33] LABS: INR 0.96 (0.83-1.09)
[2023-12-21 15:36] LABS: ACTIVATED PTT 38.5 SECONDS (25.2-36.5)
[2023-12-21 15:45] LABS: POTASSIUM 4.4 mmol/L (3.5-5.1)
[2023-12-21 15:47] LABS: BLOOD UREA NITROGEN 14.1 mg/dL (7-18); CALCIUM 8.9 mg/dL (8.5-10.1); MAGNESIUM 2.1 mg/dL (1.8-2.4)
[2023-12-21 15:51] LABS: CREATININE 1.2 mg/dL (0.55-1.3)
[2023-12-21 15:52] LABS: BILIRUBIN,TOTAL 0.6 mg/dL (0.2-1); TOT PROT 7.6 g/dl (6.4-8.2)
[2023-12-21 16:42] LABS: HIV INTERPRETATION NEGATIVE (NEGATIVE)
[2023-12-21] MEDS: SODIUM CHLORIDE 0.9% 500 ML INFUS.BAG IV ONE (16:42)
== END 2023-12-21 17:33 | disposition home or self-care (01) ==
LOC: JER 14:26
DX: R42 Dizziness and giddiness (principal)
CPT/HCPCS: 36415; 71045-TC-FY; 80053; 83735; 84484; 85025; 85610; 85730; 86803; 86850; 86900; 86901; 87389; 93005; 93010; 99285-25